=== PATIENT | female | born 1990 | race African-American/Black ===

== ENCOUNTER 2020-01-13 12:42 | Emergency (ER) | payer OTHER, BC, SELFPAY ==
[2020-01-13 13:00] VITALS: BP 113/88; PULSE 92; RESP 16; TEMP 36.2; O2SAT 100
--- NOTE | 2020-01-13 13:09 | ED.DENTAL ---
HPI - Dental/Oral General Chief complaint: Dental/Oral Stated complaint: toothache Time Seen by Provider: 01/13/20 13:09 Source: patient and RN notes reviewed Mode of arrival: ambulatory Limitations: no limitations History of Present Illness HPI Narrative: 29-year-old female who is 31 weeks presents with concern for left upper dental pain. Reports several days with the pain, reports she has been using Tylenol and Orajel. Denies fever, malaise. Reports she called her dentist who said they would not treat her while she was without a release. Patient reports normal movement MD Complaint: tooth pain Teeth map: 1. Tooth pain Related Data Home Medications Medication Instructions Recorded Confirmed PNV cmb#95-ferrous fumarate-FA 1 tablet PO DAILY 01/13/20 01/13/20 [] aspirin 81 mg PO DAILY 01/13/20 01/13/20 metformin 750 mg PO DAILY 01/13/20 01/13/20 Allergies Allergy/AdvReac Type Severity Reaction Status Date / Time No Known Allergies Allergy Verified 01/13/20 12:51 Review of Systems Review of Systems: Narrative: CONSTITUTIONAL: Denies malaise, chills, sweats, or fever. EYES: Denies visual changes ENT: Denies rhinorrhea, congestion, sinus pain, otalgia or sore throat. Reports left upper dental pain CARDIOVASCULAR: Denies chest pain, palpitations, or edema. RESPIRATORY: Denies cough or dyspnea. SKIN: Reports left facial swelling and tenderness MUSCULOSKELETAL: Denies myalgia. NEUROLOGIC: Denies numbness, weakness, or headache. All systems reviewed & are unremarkable except as noted in HPI and below PMFSH Family History Family History (Updated 02/25/18 @ 11:01 by DOCTOR UNKNOWN) Father Hypertension Family history of type 2 diabetes mellitus Mother Family history of malignant neoplasm of breast in first degree relative Social History Social History Gender identity (if verbalized by the patient): Female Comments At time of signature, agree with nursing past medical, surgical, social and family history. There is no relevant family history pertinent to the presenting complaint Exam Narrative: Exam Narrative: GENERAL: Well-appearing, well-nourished, and in no acute distress. HEAD: Normocephalic, atraumatic. EYES: PERRLA, conjunctivae clear, and EOMI. No nystagmus. ENT: Nares clear. Mucous membranes moist. Oropharynx without edema, erythema or lesions. Tonsils not enlarged and without exudate. Dentition grossly normal, tooth #14 cracked, surrounding gumline erythematous, no periapical abscess NECK: Supple. CHEST: No respiratory distress. Speaks in full sentences. HEART: Regular rate and rhythm. SKIN: Warm, dry, no rash. NEURO: Alert and oriented x3. PSYCH: Normal mood and affect Course Course Emergency Course: Patient is aware of diagnosis, understands and agrees to treatment plan. Anticipatory guidance given. Patient agrees to follow-up as directed and is aware of reasons to seek care at the emergency department. Portions of this record may have been created with voice recognition software Vital Signs Vital signs: Vital Signs Temperature 97.1 F L 01/13/20 13:00 Pulse Rate 92 01/13/20 13:00 Respiratory Rate 16 01/13/20 13:00 Blood Pressure 113/88 01/13/20 13:00 Pulse Oximetry 100 01/13/20 13:00 Temperature 97.1 F L 01/13/20 13:00 Pulse Rate 92 01/13/20 13:00 Respiratory Rate 16 01/13/20 13:00 Blood Pressure 113/88 01/13/20 13:00 Pulse Oximetry 100 01/13/20 13:00 Reviewed. MDM - Dental/Oral MDM Narrative Medical decision making narrative: Patients pain and complaint coupled with physical findings are consistant with dentalgia. There are no focal signs of space occupying lesions that are compromising to the airway; no dysphagia, odynophagia, dysphonia, or dyspnea. No uvular deviation or soft palate edema. Patient is non-toxic appearing. The floor of the mouth is soft with no signs of Raul's Angina; no induration bel
== END 2020-01-13 13:20 | disposition home or self-care (01) ==
PROVIDERS: Emergency Provider Nurse Practitioner; PCP Family Medicine
DX: O99.613 Diseases of the digestive system complicating pregnancy, third trimester (principal); K08.89 Other specified disorders of teeth and supporting structures; O99.283 Endocrine, nutritional and metabolic diseases complicating pregnancy, third trimester; E28.2 Polycystic ovarian syndrome; Z3A.31 31 weeks gestation of pregnancy
CPT/HCPCS: 99213; G0463

== ENCOUNTER 2020-01-15 20:24 | Emergency (ER) | payer OTHER, BC, SELFPAY ==
[2020-01-15 20:43] VITALS: BP 126/90; PULSE 87; RESP 20; TEMP 36.3; O2SAT 100
[2020-01-15 22:00] VITALS: BP 128/70; PULSE 81; RESP 18; O2SAT 99
--- NOTE | 2020-01-15 22:38 | ED.DENTAL ---
HPI - Dental/Oral General Chief complaint: Dental/Oral <SANAZ Marx Last Filed: 01/15/20 22:44> Stated complaint: tooth pain <SANAZ Marx Last Filed: 01/15/20 22:44> Time Seen by Provider: 01/15/20 22:06 <SANAZ Maxr Last Filed: 01/15/20 22:44> Source: patient <SANAZ Marx Last Filed: 01/15/20 22:44> Mode of arrival: ambulatory <SANAZ Marx Last Filed: 01/15/20 22:44> Limitations: no limitations <SANAZ Marx Last Filed: 01/15/20 22:44> History of Present Illness HPI Narrative: This is a 29-year-old female that presents emergency department for toothache x3 days. Reports she was seen at the urgent care for this 2 days ago and started on Augmentin. Reports she has not had any relief since. Denies fever. <Filomena Em PA-C - Last Filed: 01/15/20 22:44> MD Complaint: tooth pain <SANAZ Marx Last Filed: 01/15/20 22:44> Location: Tooth # (14) <SANAZ Marx Last Filed: 01/15/20 22:44> Related Data Home medications: Home Medications Medication Instructions Recorded Confirmed PNV cmb#95-ferrous fumarate-FA 1 tablet PO DAILY 01/13/20 01/13/20 [] aspirin 81 mg PO DAILY 01/13/20 01/13/20 metformin 750 mg PO DAILY 01/13/20 01/13/20 <SANAZ Marx Last Filed: 01/15/20 22:44> Allergies/adverse reactions: Allergies Allergy/AdvReac Type Severity Reaction Status Date / Time No Known Allergies Allergy Verified 01/15/20 20:47 <SANAZ Marx Last Filed: 01/15/20 22:44> Review of Systems Review of Systems: Narrative: CONSTITUTIONAL: Denies fever ENT: Reports dentalgia <Filomena Em PA-C - Last Filed: 01/15/20 22:44> All systems reviewed & are unremarkable except as noted in HPI and below <Filomena Em PA-C - Last Filed: 01/15/20 22:44> PMFSH Past Medical History Medical History: Medical History (Updated 01/16/20 @ 00:00 by Background Daemon) History of PCOS <Filomena Em PA-C - Last Filed: 01/15/20 22:44> Family History Family History: Family History (Updated 02/25/18 @ 11:01 by DOCTOR UNKNOWN) Father Hypertension Family history of type 2 diabetes mellitus Mother Family history of malignant neoplasm of breast in first degree relative <Filomena Em PA-C - Last Filed: 01/15/20 22:44> Social History Social History: Social History (Updated 01/15/20 @ 22:39 by Filomena Em PA-C) Smoking status: Never smoker Gender identity (if verbalized by the patient): Female <Filomena Em PA-C - Last Filed: 01/15/20 22:44> Exam Narrative: Exam Narrative: GENERAL: Well-appearing, well-nourished, and in no acute distress. HEAD: Normocephalic, atraumatic. EYES: EOMI. ENT: Mucous membranes moist. Oropharynx without tonsillar hypertrophy exudate or other lesions. Tooth #14 tender palpation, without surrounding erythema or edema to suggest abscess NECK: Supple. No adenopathy or masses. CHEST: Airway patent EXTREMITIES: Normal range of motion. No edema. SKIN: Warm, dry, no rash. NEURO: No focal deficits. Alert and oriented x3. PSYCH: Normal mood and affect <Filomena Em PA-C - Last Filed: 01/15/20 22:44> Course Vital Signs Vital signs: Vital Signs Temperature 97.4 F L 01/15/20 20:43 Pulse Rate 87 01/15/20 20:43 Respiratory Rate 20 01/15/20 20:43 Blood Pressure 126/90 01/15/20 20:43 Pulse Oximetry 100 01/15/20 20:43 Temperature 97.4 F L 01/15/20 20:43 Pulse Rate 81 01/15/20 22:00 Respiratory Rate 18 01/15/20 22:00 Blood Pressure 128/70 01/15/20 22:00 Pulse Oximetry 99 01/15/20 22:00 <Filomena Em PA-C - Last Filed: 01/15/20 22:44> Vital Signs Temperature 97.4 F L 01/15/20 20:43 Pulse Rate 87 01/15/20 20:43 Respiratory Rate 01/15/20 20:43 Blood Pressure 126/90 01/15/20 20:43 Pulse Oximetry 100
== END 2020-01-15 22:55 | disposition home or self-care (01) ==
PROVIDERS: Emergency Provider Emergency Medicine; PCP Family Medicine
DX: K08.89 Other specified disorders of teeth and supporting structures (principal)
CPT/HCPCS: 99283

== ENCOUNTER 2021-04-15 16:34 | Emergency (ER) | payer BC, SELFPAY ==
[2021-04-15 16:46] VITALS: BP 120/87; PULSE 63; RESP 18; TEMP 36.6; O2SAT 100
--- NOTE | 2021-04-15 17:24 | ED.EYEPROB ---
HPI - Eye Problem General Chief complaint: Eye Problems Stated complaint: Right Eye Pain Time Seen by Provider: 04/15/21 17:02 Source: patient and RN notes reviewed Mode of arrival: ambulatory Limitations: no limitations History of Present Illness HPI Narrative: Patient presents today complaining of right eye redness and pain. Redness began yesterday evening and pain began today. Denies any injury or trauma to the eye. Denies vision changes, itching, spots or floaters, or drainage. She does report that the pain is localized in the medial corner. Denies that she has used any medications or [id number] treatment prior to arrival. MD chief complaint: eye pain and eye redness Related Data Home Medications Medication Instructions Recorded Confirmed [facility] cmb#95-ferrous fumarate-FA 1 tablet PO DAILY 01/13/20 04/15/21 [] metformin 750 mg PO DAILY 01/13/20 04/15/21 desogestrel-ethinyl estradiol 1 tablet PO DAILY 04/15/21 04/15/21 [Enskyce] Allergies Allergy/AdvReac Type Severity Reaction Status Date / Time No Known Allergies Allergy Verified 04/15/21 17:04 Review of Systems Review of Systems: CONSTITUTIONAL: Denies body aches, fever, chills, or sweats. EYES: Denies visual changes, or discharge. + Right eye redness and pain ENT: Denies rhinorrhea, congestion, sore throat, or otalgia. CARDIOVASCULAR: Denies chest pain, palpitations, or edema. RESPIRATORY: Denies cough or dyspnea. GASTROINTESTINAL: Denies abdominal pain, nausea, vomiting, or diarrhea. GENITOURINARY: Denies dysuria or hematuria. SKIN: Denies rash, itching, or wounds. MUSCULOSKELETAL: Denies back pain, joint pain, or myalgia. NEUROLOGIC: Denies headache, numbness, tingling, or weakness. PSYCH: Denies depression or anxiety. [facility] Past Medical History Medical History History of PCOS Family History Family History Father Hypertension Family history of type 2 diabetes mellitus Mother Family history of malignant neoplasm of breast in first degree relative Social History Social History Smoking status: Never smoker Gender identity (if verbalized by the patient): Female Comments At time of signature, I have reviewed and agree with nursing past medical, surgical, social and family history unless otherwise noted. Please see nursing chart for further information. There is no relevant family history pertinent to the presenting complaint Exam Narrative: GENERAL: Well-appearing, well-nourished, and in no acute distress. HEAD: Normocephalic, atraumatic. EYES: EOMI. PERRL. No redness or drainage. Conjunctivae normal. See procedure note. ENT: Mucous membranes pink and moist. NECK: Normal AROM. CHEST: No respiratory distress. EXTREMITIES: Normal range of motion. No edema. SKIN: Warm, dry, no rash. Capillary refill normal. Normal skin turgor. NEURO: No focal deficits. Alert and oriented x3. Gait steady. PSYCH: Normal affect. No signs of depression or anxiety. Course Vital Signs Vital signs: Vital Signs Temperature 97.8 F 04/15/21 16:46 Pulse Rate 63 04/15/21 16:46 Respiratory Rate 18 04/15/21 16:46 Blood Pressure 120/87 04/15/21 16:46 Pulse Oximetry 100 04/15/21 16:46 Temperature 97.8 F 04/15/21 16:46 Pulse Rate 63 04/15/21 16:46 Respiratory Rate 18 04/15/21 16:46 Blood Pressure 120/87 04/15/21 16:46 Pulse Oximetry 100 04/15/21 16:46 Reviewed. Pt has been instructed to follow up with her PCP regarding her elevated blood pressure today. Procedures Other Procedure Procedure 1: Other Procedure: Right eye was anesthetized with 1 drop of tetracaine and anesthesia was achieved. The eye was flushed with eye wash. Lid was inverted and examined. Moistened Qtip was used to sweep underneath the upper eyeli
== END 2021-04-15 17:30 | disposition home or self-care (01) ==
PROVIDERS: Emergency Provider Nurse Practitioner; PCP Family Medicine
DX: S05.01XA Injury of conjunctiva and corneal abrasion without foreign body, right eye, initial encounter (principal); X58.XXXA Exposure to other specified factors, initial encounter; E28.2 Polycystic ovarian syndrome
CPT/HCPCS: 99213; A9270; G0463

== ENCOUNTER 2021-10-18 11:23 | Emergency (ER) | payer BC, SELFPAY ==
--- NOTE | ~2021-10-18 | CT_ITS ---
EXAMINATION: CT brain wo con DATE: 10/18/2021 14:11 INDICATION: Migraine headache. TECHNIQUE: Computed tomography (CT) of the head was performed without intravenous contrast. The mA wa s adjusted according to patient size. Iterative reconstruction technique was employed. The dose-lengt h product was 605.33 mGy-cm. COMPARISON: Head CT 01/29/2018 FINDINGS: There is no intracranial hemorrhage, acute infarction, or abnormal intracranial mass lesion . The ventricles are normal in size. The paranasal sinuses are clear. The mastoid air cells are elizabeth l. IMPRESSION: 1. Normal brain. Reviewed, dictated and finalized at location E. IMPRESSION: 1. Normal brain.
[2021-10-18 11:25] VITALS: BP 141/72; PULSE 88; RESP 14; TEMP 36.2; O2SAT 100
[2021-10-18] MEDS: METOCLOPRAMIDE HCL INJ 10 MG/2 ML VIAL IV PUSH (12:43)
[2021-10-18] MEDS: SODIUM CHLORIDE 0.9% IV 1,000 ML 999 ML IV CONT (12:43)
[2021-10-18] MEDS: KETOROLAC 30 MG/ML VIAL (*BKC) IV PUSH (12:43)
[2021-10-18] MEDS: diphenhydrAMINE HCl INJ 50 MG/ML VIAL IV PUSH (12:43)
--- NOTE | 2021-10-18 13:36 | ED.GENADULT ---
HPI - General Adult General Chief complaint: Headache Stated complaint: headache x5 days Time Seen by Provider: 10/18/21 12:25 Source: patient Mode of arrival: ambulatory Limitations: no limitations History of Present Illness HPI narrative: Patient is a 31 years old -[place] female came to the emergency room because of throbbing migraine headache right frontal started 5 days ago, worse than the previous migraine headache. Patient reports photophobia, denies any vomiting. Patient reported the headache is similar to the previous 1 but more intense. Patient reports quite a bit of stress lately. And lack of sleep. Related Data Home Medications Medication Instructions Recorded Confirmed PNV cmb#95-ferrous fumarate-FA 1 tablet PO DAILY 01/13/20 10/18/21 [] metformin 750 mg PO DAILY 01/13/20 10/18/21 desogestrel-ethinyl estradiol 1 tablet PO DAILY 04/15/21 10/18/21 [Enskyce] Allergies Allergy/AdvReac Type Severity Reaction Status Date / Time No Known Allergies Allergy Verified 10/18/21 11:30 Review of Systems Review of Systems: CONSTITUTIONAL: Denies fever, chills, or sweats. EYES: Denies visual changes, redness, or discharge. ENT: Denies rhinorrhea, congestion, sore throat, or otalgia. CARDIOVASCULAR: Denies chest pain, palpitations, or edema. RESPIRATORY: Denies cough or dyspnea. GASTROINTESTINAL: Denies abdominal pain, nausea, vomiting, or diarrhea. GENITOURINARY: Denies dysuria or hematuria. SKIN: Denies rash or itching. MUSCULOSKELETAL: Denies back pain, joint pain, or myalgia. NEUROLOGIC: Denies headache, numbness, or weakness. PSYCHIATRIC: Denies anxiety or depression. PMFSH Past Medical History Medical History History of PCOS Family History Family History Father Hypertension Family history of type 2 diabetes mellitus Mother Family history of malignant neoplasm of breast in first degree relative Social History Social History Smoking status: Never smoker Gender identity (if verbalized by the patient): Female Exam Narrative: General appearance: Well-developed, well-nourished Skin: Normal color Head: Normocephalic, nontraumatic Eyes: Clear conjunctiva ENT: Oropharynx normal, ears normal, nose normal Neck: Supple, nontender Chest and respiratory: Airway patent, no respiratory distress, no accessory muscle use Heart: Regular rate/rhythm Abdomen: Soft, nontender, no organomegaly, quiet bowel sounds Vascular: Normal peripheral pulses, normal capillary refill. 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 tested, no gross motor deficit Course Course Emergency Course: Improving Vital Signs Vital signs: Vital Signs Temperature 36.2 C L 10/18/21 11:25 Pulse Rate 88 10/18/21 11:25 Respiratory Rate 14 10/18/21 11:25 Blood Pressure 141/72 H 10/18/21 11:25 Pulse Oximetry 100 10/18/21 11:25 Temperature 36.2 C L 10/18/21 11:25 Pulse Rate 88 10/18/21 11:25 Respiratory Rate 14 10/18/21 11:25 Blood Pressure 141/72 H 10/18/21 11:25 Pulse Oximetry 100 10/18/21 11:25 Medical Decision Making MDM Narrative Medical decision making narrative: Migraine headache, tension headache Vital Signs Vital Signs: Vital Signs Temperature 36.2 C L 10/18/21 11:25 Pulse Rate 88 10/18/21 11:25 Respiratory Rate 14 10/18/21 11:25 Blood Pressure 141/72 H 10/18/21 11:25 Pulse Oximetry 100 10/18/21 11:25 Temperature 36.2 C L 10/18/21 11:25 Pulse Rate 8
--- NOTE | 2021-10-18 14:58 | PC.NURSE ---
pt laying on bed talking on phone with no distress noted. ns reconnected and infusing wide open
[2021-10-18] MEDS: LORazepam INJ (*CRX) 2 MG/ML VIAL 1 MG IV PUSH (15:01)
== END 2021-10-18 17:35 | disposition home or self-care (01) ==
PROVIDERS: Emergency Provider Emergency Medicine; PCP Family Medicine
DX: G43.909 Migraine, unspecified, not intractable, without status migrainosus (principal); E28.2 Polycystic ovarian syndrome
CPT/HCPCS: 70450; 96361; 96374; 96375; 99284; J1200; J1885; J2060; J2765; J7030

== ENCOUNTER 2024-01-31 19:27 | Emergency (ER) | payer BC, SELFPAY ==
[2024-01-31 19:49] VITALS: BP 121/79; PULSE 64; RESP 20; TEMP 36.9; O2SAT 100
--- NOTE | 2024-01-31 19:52 | ED.EXTPRO ---
HPI - Extremity Problem General Stated complaint: Right Wrist Pain Time Seen by Provider: 01/31/24 19:28 Source: patient Mode of arrival: ambulatory Limitations: no limitations History of Present Illness HPI Narrative: Portion is a 33-year-old female patient presenting to the clinic today with complaints of right thumb pain. She reports this been going on for over a month. Has not taken any Tylenol or ibuprofen for her symptoms. Thought initially she may have slept on it wrong. Has overuse of the right thumb by texting. Related Data Home Medications Medication Instructions Recorded Confirmed metformin 750 mg tablet,extended 750 mg PO DAILY 01/13/20 01/31/24 release 24 hr vit no.95-ferrous 1 tablet PO DAILY 01/13/20 01/31/24 fumarate 28 mg-folic acid 800 mcg tablet () desogestrel 0.15 mg-ethinyl 1 tablet PO DAILY 04/15/21 01/31/24 estradiol 0.03 mg tablet (Enskyce) Allergies Allergy/AdvReac Type Severity Reaction Status Date / Time No Known Allergies Allergy Verified 01/31/24 19:58 Review of Systems Review of Systems: Pertinent positives per HPI. Patient denies any fever, chills, rash, headache, visual changes, dizziness, cough, runny nose, sore throat, shortness of breath, chest pain, palpitations, nausea, vomiting, diarrhea, constipation, abdominal pain, or any urinary issues. PMFSH Past Medical History Medical History History of PCOS Family History Family History Father Hypertension Family history of type 2 diabetes mellitus Mother Family history of malignant neoplasm of breast in first degree relative Social History Social History Smoking status: Never smoker Gender identity (if verbalized by the patient): Female Comments At the time of my signature, I reviewed and agree with the nursing past medical, surgical, social, and family history. There is no relevant family history pertinent to the patient complaint. Exam Narrative: General: Well-developed, well nourished, in no apparent distress Head: Normocephalic, atraumatic. Cardio: Regular rate and rhythm, s1 and s2 normal, no murmur appreciated. Resp: Clear to auscultation bilaterally, no rhonchi, rales, wheezing or rubs. Musculoskeletal: No deformity, tender to palpation over the base of the right thumb, positive Dylon test, grossly normal range of motion, muscle strength strong and equal, peripheral pulse strong, no edema, no cyanosis, normal gait and station Course Course Emergency Course: Portions of this record may have been created with voice recognition software. Level of Care: Express Care Visit Vital Signs Vital signs: Vital Signs Temperature 36.9 C 01/31/24 19:49 Pulse Rate 64 01/31/24 19:49 Respiratory Rate 20 01/31/24 19:49 Blood Pressure 121/79 01/31/24 19:49 Pulse Oximetry 100 01/31/24 19:49 Oxygen Delivery Room Air 01/31/24 19:49 Temperature 36.9 C 01/31/24 19:49 Pulse Rate 64 01/31/24 19:49 Respiratory Rate 20 01/31/24 19:49 Blood Pressure 121/79 01/31/24 19:49 Pulse Oximetry 100 01/31/24 19:49 Oxygen Delivery Room Air 01/31/24 19:49 Vital signs reviewed MDM - Extremity (Nontraumatic) MDM Narrative Medical decision making narrative: At the time of visit patient is resting comfortably on the exam table. Patient appears to be nontoxic. I suspect patient has de Quervain tenosynovitis. Recommend wearing a thumb spica splint and will send in prescription for naproxen for pain and inflammation. Supportive measures were discussed with the patient and they voiced understanding discharge instructions and agrees to treatment plan. Return precautions reviewed Differential Diagnosis Differential diagnosis: Likely gout and other (De Quervain tenosynovitis, wrist ten
== END 2024-01-31 20:05 | disposition home or self-care (01) ==
PROVIDERS: Emergency Provider Nurse Practitioner Family; PCP Internal Medicine
DX: M65.4 Radial styloid tenosynovitis [de Quervain] (principal); E28.2 Polycystic ovarian syndrome
CPT/HCPCS: 99213; G0463